=== PATIENT | male | born 2000 | race Caucasian/White ===

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

== ENCOUNTER → 2021-02-18 08:17 | Outpatient (CLI) | payer OTHER, SELFPAY ==
[2021-02-18] MEDS: COVID-19 VACC #1, MRNA(MOD) 100 MCG/0.5 ML VIAL IM (08:26)
== END ==
PROVIDERS: PCP Pediatrics; Visit Provider Internal Medicine
DX: Z23 Encounter for immunization (principal)
CPT/HCPCS: 0011A; 91301

== ENCOUNTER → 2021-08-04 16:20 | Outpatient (CLI) | payer OTHER, SELFPAY ==
[2021-08-04 18:29] LABS: TSH w/ Reflex to FT4 0.53 uIU/mL (0.47-4.68)
== END ==
PROVIDERS: PCP Family Medicine; Referring Provider Family Medicine; Visit Provider Family Medicine
DX: Z00.00 Encounter for general adult medical examination without abnormal findings (principal); F41.9 Anxiety disorder, unspecified; G47.9 Sleep disorder, unspecified
CPT/HCPCS: 36415; 84443

== ENCOUNTER → 2022-06-06 09:30 | Outpatient (CLI) | payer OTHER, SELFPAY ==
[2022-06-07 09:05] LABS: Rubeola Measles IgG 91.9 AU/mL (Immune >16.4)
[2022-06-07 14:17] LABS: Mumps Virus IgG Antibody 28.1 AU/mL (Immune >10.9)
[2022-06-08 19:32] LABS: Rubella Antibody IgG 31.6 IU/mL (>15)
== END ==
PROVIDERS: PCP Family Medicine; Referring Provider Family Medicine; Visit Provider Family Medicine
DX: Z92.29 Personal history of other drug therapy (principal)
CPT/HCPCS: 36415; 86735; 86762; 86765

== ENCOUNTER → 2022-10-23 14:11 | Outpatient (CLI) | payer OTHER, SELFPAY ==
[2022-10-23 15:20] LABS: COVID19 -Nasal RAPID Negative (Negative)
== END ==
PROVIDERS: PCP Family Medicine; Visit Provider Urology
DX: Z20.822 Contact with and (suspected) exposure to COVID-19 (principal)
CPT/HCPCS: 87635

== ENCOUNTER 2022-10-24 14:26 | Day surgery (SDC) | payer OTHER, SELFPAY ==
[2022-10-23 15:18] VITALS: BMI 19.5
[2022-10-24] VITALS (10 sets, daily range): BP systolic 88–151; BP diastolic 49–77; PULSE 56–99; RESP 12–20; TEMP 36.2–37; O2SAT 96–100; BMI 19.5
--- NOTE | 2022-10-24 | PATH_ITS ---
[facility] Accession Number: [id number] No. of containers..01 Tissue . 01 Material submitted: . foreskin - FORESKIN . 01 Diagnosis: Foreskin, Biopsy: Fragment of foreskin with mild inflammation. MRV 10/26/2022 1409 Local . 01 Electronically signed: . Suzan Alejandro MD, Dermatopathologist NPI- [id number] . 01 Gross description: . The specimen is received in formalin labeled with the patient's name, , and foreskin, and consists of an irregular rousseau, wrinkled fragment of skin with an unremarkable cutaneous surface. The margin is inked blue and sectioning reveals a pink-rousseau, soft, unremarkable cut surface. [employer] sections are submitted in cassette A1. ([id number]) /AMADO 10/25/2022 0850 Local . 01 Pathologist provided ICD-10: N47.1 . 01 CPT . 199027 Specimen Comment: A courtesy copy of this report has been sent to [phone] Performed at: 01 [facility] [address] [place] [address], [place], [place] [id number] MD Manoj Christie MD Phone: [phone]
[2022-10-24] MEDS: LACTATED RINGERS 1,000 ML 21 ML IV ×2 (14:36→15:53)
--- NOTE | 2022-10-24 14:45 | SUR.OPER ---
Supine on padded OR bed, head on pillow, arms secured on padded arm boards at <90 degrees abduction, legs uncrossed, safety belt at thigh, tape over blanket over lower legs.
--- NOTE | 2022-10-24 15:00 | PM.PREOP ---
Pre-operative Note COVID-19 COVID-19 status: Negative Result date/Date tested (Pos, Neg/Pending): 10/23/22 Criteria for continued procedure: Delay expected to result in less-positive ultimate med/surg outcome and Non-surgical alternatives not available or appropriate per current SOC Interval Note History & Physical reviewed/Exam performed by Physician: Yes Changes to H&P: No
[2022-10-24] MEDS: CEFAZOLIN 2 GM/100 ML PREMIX 100 ML IV (15:20)
[2022-10-24] MEDS: BUPIVACAINE 0.25% (PF) VIAL 30 ML INJ (15:33)
--- NOTE | 2022-10-24 16:40 | PM.OP.1 ---
Procedure & Clinicians Procedure: Circumcision Same procedure as scheduled: Yes Indications: This is a very pleasant 22-year-old male who presented with complaints of being unable to retract his foreskin of it being painful and was found to have very tight phimosis. He presents this time for circumcision to treat and resolve this situation. Surgeon: Mayito Galvan Click Yes if Unassisted: Yes Anesthesia Type: General Operative Notes Findings: Findings: Very tight phimotic ring otherwise normal anatomy, no evidence of balanitis or infection today. Closure Type: primary Specimen(s): other (Foreskin) Estimated Blood Loss (mL): 10 Procedure in detail: Procedure in detail: After informed consent was obtained, the patient was identified and brought to the operating room. Patient was placed in a supine position on the table where anesthesia was induced to maintain. Patient received his antibiotics. Patient was shaved, prepped, draped and prepared for circumcision. After prepping draping and assuring an adequate level of anesthesia and after time-out the shaft skin and coronal sulcus were circumferentially marked and each of these circumferential lines was then incised. Then using blunt sharp and electrocautery dissection the sleeve of foreskin tissue was removed. Points of bleeding were controlled with electrocautery. Skin edges were then reapproximated with interrupted 2-0 chromic gut suture. The in incision was circumferentially infiltrated with 0.25% plain Marcaine. Vaseline gauze and dressing were applied. The patient was awakened having tolerated the procedure well there were no complications. The patient was then transferred to the postanesthesia care unit for recovery the patient will be discharged to home. Patient is to follow up my office in approximately 2 weeks Complications: none Post-operative Condition: stable Disposition: PACU Plan for aftercare: Once fully awake and alert the patient will be discharged home to follow up for my office in approximately 2 weeks.
[2022-10-24] MEDS: ACETAMINOPHEN 325 MG TABLET 650 MG PO (17:25)
--- NOTE | 2022-10-24 17:39 | SUR.PHASEI ---
report received from JEWELL So at [id number]
[2022-10-24] MEDS: OXYCODONE/ACETAMINOPHEN 5/325 TABLET 1 TAB PO (17:41)
== END 2022-10-24 18:15 | disposition home or self-care (01) ==
PROVIDERS: PCP Family Medicine; Referring Provider Urology; Visit Provider Urology
PROC: (CPT 54161; principal; 2022-10-24 15:30)
DX: N47.1 Phimosis (principal)
CPT/HCPCS: 54161; J0690; J1100; J2250; J2405; J2704; J3010; J3490